=== PATIENT | male | born 1950 | race Two or more races ===

== ENCOUNTER 2017-09-25 05:39 | Day surgery (SDC) | payer MEDICARE, OTHER ==
[2017-09-25] MEDS ORDERED: MIDAZOLAM HCL 2 MG/2ML VIAL ONE (08:48)
[2017-09-25] MEDS ORDERED: ROCURONIUM BROMIDE 50 MG/5 ML ONE (09:08)
== END 2017-09-25 11:30 | disposition home or self-care (01) ==
LOC: DS 05:39
PROVIDERS: ATTEND Specialist
DX: M75.42 Impingement syndrome of left shoulder (principal); M75.112 Incomplete rotator cuff tear or rupture of left shoulder, not specified as traumatic; M19.012 Primary osteoarthritis, left shoulder; M65.812 Other synovitis and tenosynovitis, left shoulder; M25.512 Pain in left shoulder; F17.200 Nicotine dependence, unspecified, uncomplicated; Z72.89 Other problems related to lifestyle; Z80.1 Family history of malignant neoplasm of trachea, bronchus and lung; Z79.899 Other long term (current) drug therapy
CPT/HCPCS: 88304-TC; 88311-TC; A4217; A6253; C1713; J2250